=== PATIENT | female | born 1950 | race Caucasian/White ===

== ENCOUNTER → 2020-02-13 | Outpatient (CLI) | payer MEDICARE, OTHER ==
[~2020-02-13] MED LIST: ASPI325 PO; ASPI81CH PO; GABA300 PO; HYDROCODONE-AC1 EAC5 PO; IBUP800 PO; LOSA50 PO; Metoprolol Tart25 MG PO; NORVASC2.5 MG PO; Norco 10-325 T1 EACH PO; PRAVACHOL20 MG PO; PROM25 PO; SULTRIDS PO
[2020-02-13 13:58] LABS: Source, Urine Clean Catch
[2020-02-13 15:50] LABS: Bacteria Many /hpf; Red Blood Cells, Urine 0-2 /hpf (0-2); Squamous Epithelial Cells Rare /hpf (Few)
== END | disposition home or self-care (01) ==
LOC: LAB SHORT 13:30 → LAB 13:30
PROVIDERS: Orthopaedic Surgery
DX: R33.9 Retention of urine, unspecified (principal)
CPT/HCPCS: 81015

== ENCOUNTER → 2020-02-15 | Outpatient (CLI) | payer MEDICARE, OTHER | END | disposition home or self-care (01) | LOC: LAB SHORT 11:00 → OLS 11:00 | DX: N39.0 Urinary tract infection, site not specified (principal) | CPT/HCPCS: 87077; 87086; 87186 ==

== ENCOUNTER → 2021-01-06 | Outpatient (CLI) | payer MEDICARE, OTHER | END | disposition home or self-care (01) | LOC: LAB SHORT 11:00 → LAB 11:00 | DX: D48.5 Neoplasm of uncertain behavior of skin (principal) | CPT/HCPCS: 88305 ==

== ENCOUNTER → 2021-01-22 | Outpatient (CLI) | payer MEDICARE, OTHER | END | disposition home or self-care (01) | LOC: LAB 17:31 → LAB SHORT 17:31 | DX: R82.90 Unspecified abnormal findings in urine (principal) | CPT/HCPCS: 87077; 87086; 87186 ==

== ENCOUNTER → 2021-08-09 | Outpatient (CLI) | payer MEDICARE, OTHER | END | disposition home or self-care (01) | LOC: LAB SHORT 15:17 | DX: N39.0 Urinary tract infection, site not specified (principal) | CPT/HCPCS: 87077; 87086; 87186 ==

== ENCOUNTER → 2021-09-17 | Outpatient (CLI) | payer MEDICARE ==
[2021-09-17 13:39] LABS: Stool Occult Bld Immuno 1 Positive (NEGATIVE)
== END | disposition home or self-care (01) ==
LOC: LAB SHORT 10:59 → LAB 10:59
PROVIDERS: Family Medicine
DX: Z12.11 Encounter for screening for malignant neoplasm of colon (principal)
CPT/HCPCS: G0328

== ENCOUNTER → 2022-05-18 | Outpatient (CLI) | payer MEDICARE | END | disposition home or self-care (01) | LOC: LAB 08:30 → LAB SHORT 08:30 | DX: N17.9 Acute kidney failure, unspecified (principal); N39.0 Urinary tract infection, site not specified | CPT/HCPCS: 87077; 87086; 87186 ==

== ENCOUNTER 2022-09-27 15:06 | Inpatient (IN) | payer MEDICARE ==
[~2022-09-27] VITALS: Ht 167.6 cm; Wt 71.9 kg
[2022-09-27] MEDS ORDERED: TIZA4 PO (15:46)
[2022-09-27 17:01] LABS: BASOPHILS ABSOLUTE AUTO 0.03 K/mm3 (0.00-0.23); BASOPHILS PERCENT AUTO 1 % (0-2); EOSINOPHILS ABSOLUTE AUTO 0.04 K/mm3 (0.00-0.68); EOSINOPHILS PERCENT AUTO 1 % (0-6); Hematocrit 32.2 % (33.0-51.0); Hemoglobin 10.9 g/dL (11.5-16.0); IMMATURE GRAN ABSOLUTE AUTO 0.02 K/mm3 (0.00-0.10); IMMATURE GRAN PERCENT AUTO 0 % (0-1); LYMPHOCYTES ABSOLUTE AUTO 1.11 K/mm3 (0.84-5.20); LYMPHOCYTES PERCENT AUTO 21 % (21-46); MONOCYTES ABSOLUTE AUTO 0.49 K/mm3 (0.16-1.47); MONOCYTES PERCENT AUTO 9 % (4-13); Mean Corpuscular HGB 32.4 pg (26.0-34.0); Mean Corpuscular HGB Conc 33.9 g/dL (31.5-36.5); Mean Corpuscular Volume 96 fL (80-100); Mean Platelet Volume 10.4 fL (9.1-12.4); NEUTROPHILS ABSOLUTE AUTO 3.63 K/mm3 (1.96-9.15); NEUTROPHILS PERCENT AUTO 68 % (41-73); Platelet Count 231 K/mm3 (150-400); RDW Coefficient Variation 12.9 % (11.7-14.2); RDW Standard Deviation 44.7 fL (35.1-46.3); Red Blood Cell Count 3.36 M/mm3 (3.80-5.20); White Blood Cell Count 5.32 K/mm3 (4.00-11.30)
[2022-09-27 17:31] LABS: Bun/Creatinine Ratio 15.8 (12.0-20.0); Calcium, Blood 9.8 mg/dL (8.5-10.1); Creatinine, Blood 3.17 mg/dL (0.40-1.00); Potassium, Blood 5.1 mmol/L (3.5-5.5)
[2022-09-27 17:40] LABS: Ethanol (Alcohol), Blood, Med 115 mg/dL
[2022-09-27 17:43] LABS: Alanine Aminotransfer (ALT/SGP 65 U/L (12-78); Albumin, Blood 4.3 g/dL (3.4-5.0); Albumin/Globulin Ratio 0.9 (0.8-1.8); Alk Phos 111 U/L (50-136); Aspartate Aminotrans (AST/SGOT 73 U/L (12-37); Bilirubin, Direct <0.1 mg/dL (0.0-0.3); Bilirubin, Total 0.2 mg/dL (0.1-1.0); Globulin, Blood 4.6 g/dL (2.2-4.0); Total Protein, Blood 8.9 g/dL (6.4-8.2)
[2022-09-27 17:44] LABS: Bilirubin, Indirect Unable to Calculate mg/dL (0.1-0.7)
[2022-09-27 19:12] LABS: Source, Urine Clean Catch
[2022-09-27 19:26] LABS: Appearance, Urine Clear (Clear); Bilirubin, Urine Neg (Neg); Blood, Urine 2+ (Neg); Glucose Qualitative, Urine 1+ (Neg); Ketones, Urine Neg (Neg); Leukocyte Esterase, Urine Neg (Neg); Nitrite, Urine Neg (Neg); Protein, Urine 2+ (Neg); Specific Gravity, Urine 1.015 (1.003-1.022); Urobilinogen, Urine NORM (Normal); pH, Urine 6.5 (5.0-8.0)
[2022-09-27 19:39] LABS: Creatinine, Urine Random 43.5 mg/dL (27.00-270.00)
[2022-09-27 19:45] LABS: Base Excess Venous -7.2 mmol/L; Bicarbonate Venous 19.1 mmol/L (24.0-30.0); PCO2 Venous 35.9 mmHg (38-42); pH Blood Venous 7.33 (7.34-7.37)
[2022-09-27 19:49] LABS: Color, Urine Pale Yellow (P-Yellow)
[2022-09-27 19:52] LABS: Bacteria Few /hpf; Red Blood Cells, Urine 0-2 /hpf (0-2); Squamous Epithelial Cells Rare /hpf (Few)
[2022-09-27 20:19] VITALS: BP 140/79
[2022-09-27] MEDS ORDERED: IBUP800 PO (20:22)
[2022-09-27] MEDS ORDERED: CENTRUM SILVER1 EAC2 PO (20:22)
[2022-09-27] MEDS ORDERED: GABA300 PO (20:23)
[2022-09-28 05:01] VITALS: BP 125/56
[2022-09-28 05:21] LABS: Bun/Creatinine Ratio 18.4 (12.0-20.0); Calcium, Blood 9.1 mg/dL (8.5-10.1); Creatinine, Blood 2.17 mg/dL (0.40-1.00); Magnesium, Blood 2.4 mg/dL (1.6-2.4); Potassium, Blood 4.8 mmol/L (3.5-5.5)
--- NOTE | 2022-09-28 05:56 | NUR ---
PT ADMITTED AROUND 1999 FROM ED. AO, UP AD MARY, CONTINENT, UNMEASURED VOIDS X3. FLUIDS RUNNING AND 1350 WATER INTAKE, MONITORING KIDNEY FUNCTION LABS. UNEVENTFUL NIGHT, TELE IN PLACE WITH SINUS TACHYCARDIA.
[2022-09-28 09:13] VITALS: BP 106/61
[2022-09-28 15:12] VITALS: BP 153/75
--- NOTE | 2022-09-28 17:29 | NUR ---
PT IS A/OX4, PLEASANT AND COOPERATIVE. THE PT IS UP IND IN HER ROOM. THE PT DENIED ANY PAIN,N/V SOB T/O THIS SHIFT. THE PT APPEARS TO BE BREATHING EASILY ON RA AT THIS TIME. CALL LIGHT IN REACH. WILL CONTINUE TO MONITOR AND ASSESS FOR CHANGES
[2022-09-28 19:39] VITALS: BP 154/83
[2022-09-29 05:10] VITALS: BP 147/91
[2022-09-29 07:23] VITALS: BP 158/80
[2022-09-29 08:48] LABS: Bun/Creatinine Ratio 16.1 (12.0-20.0); Creatinine, Blood 1.43 mg/dL (0.40-1.00); Potassium, Blood 4.4 mmol/L (3.5-5.5)
--- NOTE | 2022-09-29 15:01 | NUR ---
PT DISCHARGED THE PT VERBALIZED UNDERSTANDING OF THE DC INSTRUCTIONS. THE PTS PRESCRIPTION WAS SENT TO [facility] REQUESTED. THE PT WAS TRANSFERED VIA WHEELCHAIR ACCOMPANIED BY THE INSURANCE CLAIMS ANALYST AND HER
--- NOTE | 2022-09-29 15:02 | NUR ---
AM ASSESSMENT I AGREE WITH THE STUNDENT RN DUNCAN'S ASSESSMENTS AND DOCUMENTATION ON THIS PATIENT TODAY
== END 2022-09-29 13:44 | disposition home or self-care (01) | DRG 683 ==
LOC: ER 15:06 → MEDS 19:49
PROVIDERS: Emergency Medicine; Internal Medicine; Nurse Practitioner Acute Care; Student in an Organized Health Care Education/Training Program; ADMIT Internal Medicine
DX: N17.9 Acute kidney failure, unspecified (principal); E87.20 Acidosis, unspecified; F10.129 Alcohol abuse with intoxication, unspecified; I10 Essential (primary) hypertension; N10 Acute pyelonephritis; Y90.5 Blood alcohol level of 100-119 mg/100 ml; E11.42 Type 2 diabetes mellitus with diabetic polyneuropathy; E78.5 Hyperlipidemia, unspecified; E86.0 Dehydration; T36.95XA Adverse effect of unspecified systemic antibiotic, initial encounter; Z88.5 Allergy status to narcotic agent; Z87.440 Personal history of urinary (tract) infections; Z79.899 Other long term (current) drug therapy; Z93.0 Tracheostomy status; Z96.642 Presence of left artificial hip joint; Z71.41 Alcohol abuse counseling and surveillance of alcoholic; Z98.890 Other specified postprocedural states
CPT/HCPCS: 36415; 76770; 80048; 80076; 81001; 82570; 82803; 83735; 84300; 85025; 93005; 93010; 96360; 99285-25; A9270; G0480; J1644; J7120

== ENCOUNTER → 2022-10-06 | Outpatient (CLI) | payer MEDICARE ==
[~2022-10-06] MED LIST changes: +CENTRUM SILVER1 EAC2 PO; +TIZA4 PO
== END ==
LOC: LAB 15:18 → LAB SHORT 15:18
DX: R30.0 Dysuria (principal); R31.9 Hematuria, unspecified
CPT/HCPCS: 87086